=== PATIENT | female | born 1950 | race Caucasian/White ===

== ENCOUNTER 2020-08-14 07:51 | Day surgery (SDC) | payer MEDICARE ==
[~2020-08-14 07:51] MED LIST: Midazolam 1 MG/ML 2 ML SDV ONE; Propofol 200 MG/20 ML SDV ONE; fentaNYL 100 MCG/2 ML SDV ONE
[2020-08-14] MEDS ORDERED: Sodium Chloride 0.9% 1,000 ML IV SCH (08:30)
[2020-08-14] MEDS ORDERED: Propofol 200 MG/20 ML SDV ONE (09:35)
--- NOTE | 2020-08-14 15:02 | OR ---
DATE OF PROCEDURE: 08/14/2020 SURGEON: Hernandez Shields MD PROCEDURE: Colonoscopy. FINDINGS: 1. Descending colon polyp, approximately 5 mm, completely removed using cold biopsy forceps. 2. Descending colon polyp, approximately 8 mm, completely removed using snare device. 3. Sigmoid colon polyp #1, approximately 8 mm, completely removed using endoscopic mucosal resection. 4. Sigmoid colon polyp #2, approximately 8 mm, completely removed using hot snare wire device. 5. No evidence of metastasis or other abnormality. COMPLICATIONS: None. SENIOR FRONT END ENGINEER: None. ANESTHESIA: MAC. PREOPERATIVE DIAGNOSIS: Uterine cancer requiring colonoscopy for evaluation of metastasis. POSTOPERATIVE DIAGNOSIS: Uterine cancer requiring colonoscopy for evaluation of metastasis. RISKS: Risks, benefits, alternatives, and limitations including but not limited to infection, bleeding, perforation, and false positives and false negatives were explained to the patient, and they wished to proceed. PROCEDURE IN DETAIL: The patient was placed in left lateral decubitus position. Digital rectal exam was performed without abnormality. The scope was introduced and advanced atraumatically to the appendiceal orifice. A photo was taken of this. The scope was brought back to the ascending, transverse, and descending colon and retroflexed. All the polyps were removed as described above. No abnormal bleeding was noted after removal. No evidence of old or new blood. No evidence of metastasis. No mass effect. No abnormalities. No diverticulosis. No abnormality on retroflexion. Greater than 8 minutes was spent removing the scope. Prep was acceptable, approximately 90% of luminal surface could be seen. The patient tolerated the procedure well. Hernandez Shields MD /[id number]
== END 2020-08-14 11:00 | disposition home or self-care (01) ==
LOC: JP.SDS 07:51
PROVIDERS: ATTEND Surgery
DX: D12.5 Benign neoplasm of sigmoid colon (principal); C55 Malignant neoplasm of uterus, part unspecified; I10 Essential (primary) hypertension; F17.200 Nicotine dependence, unspecified, uncomplicated
CPT/HCPCS: 45380; 45385; 45390; 88305; J2250; J2704; J3010; J7030

== ENCOUNTER 2025-01-06 09:38 | Day surgery (SDC) | payer MEDICARE ==
[2025-01-06] MEDS ORDERED: fentaNYL 50 MCG/ML SDV ONE (10:12)
[2025-01-06] MEDS ORDERED: Propofol 200 MG/20 ML SDV ONE ×3 (10:12→11:42)
[2025-01-06] MEDS: Lactated Ringers 1,000 ML IV SCH (10:23)
== END 2025-01-06 13:33 | disposition home or self-care (01) ==
LOC: JP.SDS 09:38
PROVIDERS: ATTEND Surgery
DX: Z12.11 Encounter for screening for malignant neoplasm of colon (principal); E78.00 Pure hypercholesterolemia, unspecified; I10 Essential (primary) hypertension; F17.210 Nicotine dependence, cigarettes, uncomplicated; Z88.8 Allergy status to other drugs, medicaments and biological substances; Z91.030 Bee allergy status; Z79.82 Long term (current) use of aspirin; Z79.899 Other long term (current) drug therapy
CPT/HCPCS: J2704; J3010; J7120